=== PATIENT | female | born 1955 | race Two or more races ===

== ENCOUNTER 2018-10-06 12:23 | Inpatient (IN) | payer BC ==
[~2018-10-06] VITALS: Ht 165.1 cm; Wt 54.0 kg
--- NOTE | 2018-10-06 12:36 | NUR ---
[id number] FRM HOME. OD TO XANAX. +SI. ADMITS TO ETOH LAST NIGHT. 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 PT HAS SOME SLURRED SPEECH AND DIFFICULTY SPEAKING, BUT ABLE TO FOLLOW COMMANDS AND ANSWER QUESTIONS APPROPRIATELY. SKIN IS WARM, DRY, INTACT, AND NO ACUTE DISTRESS NOTED. URINE AND BLOOD SENT TO STAT LAB. SEEN BY TERESE BRUNER. IVF INFUSING. PT MADE WARM AND COMFORTABLE. WILL CONT TO MONITOR.
[2018-10-06 12:56] LABS: APPEARANCE,URINE Clear (CLEAR); BILIRUBIN,URINE Negative (NEGATIVE); BLOOD, URINE Trace-lysed Ery/uL (NEGATIVE); COLOR,URINE Yellow (YELLOW); KETONES,URINE Negative (NEGATIVE); LEUKOCYTE ESTERASE ,URINE Negative (NEGATIVE); NITRITE, URINE Negative (NEGATIVE); PROTEIN,URINE Negative (NEGATIVE); UGLUCOSE Negative (NEGATIVE); UROBILINOGEN,URINE 0.2 EU/dL (0.2)
[2018-10-06 12:57] LABS: BACTERIA,URINE Few /HPF (None Seen); SQUAMOUS EPITHELIAL CELL,UR Few /HPF (None Seen); WBC,URINE 0-2 /HPF (0-3)
[2018-10-06] MEDS ORDERED: IV NS 0.9% 1,000 ML BAG IV ONE (13:00)
[2018-10-06 13:03] LABS: BASOPHILS % (AUTO) 0.2 % (0.0-2.0); EOSINOPHILS % (AUTO) 0.4 % (0.0-6.0); HEMATOCRIT 42 % (33-45); HEMOGLOBIN 14.4 g/dL (11.5-14.8); LYMPHOCYTES # (AUTO) 1.1 /CMM (0.8-4.8); LYMPHOCYTES % (AUTO) 26.8 % (20.0-44.0); MEAN CORPUSCULAR HGB CONC 34 g/dl (31.0-36.0); MEAN CORPUSCULAR VOLUME 105 fL (82-100); MONOCYTES # (AUTO) 0.5 /CMM (0.1-1.30); MONOCYTES % (AUTO) 13.3 % (2.0-12.0); NEUTROPHILS # (AUTO) 2.3 /CMM (1.8-8.9); NEUTROPHILS % (AUTO) 59.3 % (43.0-81.0); PLATELET COUNT (AUTO) 194 /CMM (150-450); RED BLOOD CELL COUNT(AUTO) 3.99 MIL/uL (4.0-5.2)
[2018-10-06 13:09] LABS: CALCIUM, SERUM 8.5 mg/dL (8.5-10.1); CARBON DIOXIDE 29 mmol/L (21-32); CHLORIDE 104 mmol/L (98-107); CREATININE 0.6 mg/dL (0.6-1.3); GLUCOSE 93 mg/dL (74-106); POTASSIUM 3.7 mmol/L (3.5-5.1); SODIUM SERUM 141 mmol/L (136-145); UREA NITROGEN, BLOOD 12 mg/dL (7-18)
[2018-10-06] MEDS ORDERED: VITA1TAB56 PO (13:09)
[2018-10-06] MEDS ORDERED: BUPR-51 PO (13:09)
[2018-10-06] MEDS ORDERED: ESCI10TA PO (13:09)
[2018-10-06] MEDS ORDERED: CALC-7 PO (13:09)
[2018-10-06] MEDS ORDERED: CETI-102 PO (13:09)
[2018-10-06] MEDS ORDERED: ASCO500T9 PO (13:09)
[2018-10-06] MEDS ORDERED: ALPR0.5T8 PO (13:09)
[2018-10-06 13:16] LABS: ALANINE AMINOTRANSFERASE 31 U/L (12-78); ALBUMIN 4.3 g/dL (3.4-5.0); ALKALINE PHOSPHATASE 83 U/L (46-116); ASPARTATE AMINOTRANSFERASE 39 U/L (15-37); BILIRUBIN,DIRECT 0.1 mg/dL (0.0-0.2); BILIRUBIN,TOTAL 0.4 mg/dL (0.2-1.0); TOTAL PROTEIN, SERUM 7.6 g/dL (6.4-8.2)
[2018-10-06 13:17] LABS: ACETAMINOPHEN 0 ug/ml (10-30); ALCOHOL, BLOOD < 3 mg/dL (0-0); SALICYLATE 0.8 mg/dL (2.8-20.0)
--- NOTE | 2018-10-06 14:12 | NUR ---
XRAY AT BEDSIDE
--- NOTE | 2018-10-06 14:32 | NUR ---
ASSISTED PT TO BEDPAN
--- NOTE | 2018-10-06 15:17 | NUR ---
PT TAKEN TO CT VIA JOSELINE
--- NOTE | 2018-10-06 16:05 | NUR ---
110-MIREYA. PRIMARY NURSE AWARE.
--- NOTE | 2018-10-06 16:20 | NUR ---
MIREYA HEAD OF RESEARCH & INSIGHTS NOTE RECEIVED BEDSIDE ER REPORT FROM SUDHA HILL, ADMITTED FOR DIAGNOSIS OF OVERDOSE. ADMITTING DOCTOR DR. CADET. PT. STATES SHE WISHES TO BE DNR/DNI. HX OF DEPRESSION, ALCOHOL USE AND SUICIDE ATTEMPT X1. SINUS TACHY ON MONITOR WITH HR 110. ABLE TO AMBULATE TO BATHROOM WITH ASSIST. PT IS A/OX4, CAN SPEAK AND ANSWER QUESTIONS SLOWLY. DENIES ACTIVE PLAN FOR SUICIDE AT THIS TIME. SITTER AT BEDSIDE AT ALL TIMES. NO SHARP OBJECTS OR UNSAFE ITEMS IN ROOM. SAFETY/SUICIDE PRECAUTIONS IN PLACE. BED IN LOW POSITION, SIDE RAILS X2, LOCKED, ORIENTED TO ROOM AND CALL SYSTEM. TEMP 97.6, BP 144/87, SPO2 99% 2L VIA NC. L AC IV 20G CLEAN, DRY INTACT, INFUSING D5 1/2 NS @100ML/HR. PT. SKIN INTACT WITH EXCEPTION OF BIOPSY SPOT ON NOSE. ALL BELONGINGS ACCOUNTED FOR AND WITHIN REACH. ORDERS FOR NEURO ASSESSMENT Q4 HRS. WILL CONTINUE TO MONITOR AND ENDORSE TO NOC SHIFT.
--- NOTE | 2018-10-06 16:22 | NUR ---
REPORT GIVEN TO SUDHA PICKETT FOR MIREYA-110
[2018-10-06] MEDS ORDERED: MAG HYDROX/AL HYDROX/SIMETH 30 ML UDC PO PRN (16:30)
[2018-10-06] MEDS ORDERED: HYDROCODONE/APAP 5/325MG 1 EACH TABLET PO PRN (16:30)
[2018-10-06] MEDS ORDERED: ZOLPIDEM TARTRATE 5 MG TABLET PO PRN (16:30)
[2018-10-06] MEDS ORDERED: ONDANSETRON HCL/PF 4 MG/2 ML VIAL IVP PRN (16:30)
[2018-10-06] MEDS ORDERED: MAGNESIUM HYDROXIDE 30 ML UDC PO PRN (16:30)
[2018-10-06] MEDS ORDERED: Z GUARD REMEDY 2 OZ OINT TP PRN (16:30)
--- NOTE | 2018-10-06 16:31 | NUR ---
ASSISTED PT TO BEDPAN
--- NOTE | 2018-10-06 17:08 | NUR ---
[facility]
[2018-10-06] MEDS: IV D5/0.45 NACL 1,000 ML IV PRN (17:35)
[2018-10-06] MEDS: LORAZEPAM INJ 2 MG/ML VIAL IV PRN (18:38)
--- NOTE | 2018-10-06 19:45 | NUR ---
TD RN NOTE: RECEIVED PT ON BED ALERT AND ORIENTED X3, VERBALLY RESPONSIVE. SITTER AT BEDSIDE. NO ACUTE DISTRESS NOTED. DENIES PAIN AND DISCOMFORT AT THIS TIME. ON ROOM AIR, NO SOB NOTED. SINUS TACHY ON TELE MONITOR HR 102BPM. SATURATING WELL. NO SUICIDAL IDEATION NOTED. IV ON LEFT ANTECUBITAL #20 INTACT AND PATENT, IVF INFUSING WELL. KEPT CLEAN, DRY AND COMFORTABLE. SAFETY AND FALL PRECAUTIONS OBSERVED AND MAINTAINED. WILL CONTINUE TO MONITOR PT.
[2018-10-06 20:00] VITALS: BP 149/82
[2018-10-06] MEDS: ACETAMINOPHEN 325 MG TABLET PO PRN (20:28)
[2018-10-07] VITALS: BP 153/76
[2018-10-07] MEDS: LORAZEPAM INJ 2 MG/ML VIAL IV PRN ×3 (01:02→15:31)
[2018-10-07 04:00] VITALS: BP 138/85
[2018-10-07] MEDS: IV D5/0.45 NACL 1,000 ML IV PRN (04:39)
[2018-10-07] MEDS: ACETAMINOPHEN 325 MG TABLET PO PRN (06:15)
--- NOTE | 2018-10-07 06:34 | NUR ---
TD RN NOTE: NO CHANGES NOTED THROUGHOUT THE SHIFT. NO ACUTE DISTRESS NOTED. NO SUICIDAL IDEATION NOTED. SITTER AT BEDSIDE. ON ROOM AIR, NO SOB NOTED. PT COMPLAINED OF HEADACHE, TYLENOL PRN GIVEN. ON TELE MONITOR SINUS TACHY HR 107BPM. IV ON LEFT ANTECUBITAL #20 INTACT AND PATENT, IVF INFUSING WELL. KEPT CLEAN, DRY AND COMFORTABLE. SAFETY AND FALL PRECAUTIONS OBSERVED AND MAINTAINED. WILL ENDORSE TO DAY SHIFT RN FOR CONTINUITY OF CARE.
[2018-10-07 08:00] VITALS: BP 145/84
[2018-10-07 08:09] LABS: BASOPHILS % (AUTO) 0.1 % (0.0-2.0); EOSINOPHILS % (AUTO) 0.2 % (0.0-6.0); HEMATOCRIT 41 % (33-45); HEMOGLOBIN 14.3 g/dL (11.5-14.8); LYMPHOCYTES # (AUTO) 0.5 /CMM (0.8-4.8); LYMPHOCYTES % (AUTO) 11.7 % (20.0-44.0); MEAN CORPUSCULAR HGB CONC 35 g/dl (31.0-36.0); MEAN CORPUSCULAR VOLUME 105 fL (82-100); MONOCYTES # (AUTO) 0.4 /CMM (0.1-1.30); MONOCYTES % (AUTO) 10.2 % (2.0-12.0); NEUTROPHILS # (AUTO) 3.3 /CMM (1.8-8.9); NEUTROPHILS % (AUTO) 77.8 % (43.0-81.0); PLATELET COUNT (AUTO) 178 /CMM (150-450); RED BLOOD CELL COUNT(AUTO) 3.92 MIL/uL (4.0-5.2); WHITE BLOOD COUNT (AUTO) 4.2 K/uL (4.3-11.0)
[2018-10-07 08:34] LABS: CALCIUM, SERUM 8.5 mg/dL (8.5-10.1); CREATININE 0.6 mg/dL (0.6-1.3); MAGNESIUM 2.4 mg/dL (1.8-2.4); POTASSIUM 3.5 mmol/L (3.5-5.1)
[2018-10-07 08:44] LABS: THYROID STIMULATING HORMONE 0.973 uIU/mL (0.358-3.74)
--- NOTE | 2018-10-07 09:42 | NUR ---
INITIAL MIREYA RN NOTE RCVD PT AWAKE AND ALERT, SHOWING NO S/O DISTRESS/PAIN AT THIS TIME. ST ON MONITOR. AMBULATES TO BATHROOM WHEN NEEDED WITH STEADY GAIT. RIGHT AC C/D/I/PATENT, IVF INFUSING ORDERED. NO S/O INFILTRATION/PHLEBITIS OBSERVED UPON FLUSHING. 1:1 SITTER AT BEDSIDE FOR SAFETY. PT DENYING WANTING TO HARM SELF CURRENTLY, AND CAN'T BELIEVE THAT SHE GOT TO THE POINT OF OVERDOSING YESTERDAY. WILL CONTINUE TO MONITOR PT FOR SAFETY AND COMFORT. BED IN LOW AND LOCKED POSITION. CALL LIGHT WITHIN REACH, HEAD OF BED ELEVATED.
[2018-10-07 12:23] VITALS: BP 143/86
--- NOTE | 2018-10-07 13:31 | NUR ---
MIREYA RN NOTE PODODERMATOLOGIST THIS AM CONTACTED RN FOR WHAT WAS REPORTED A V-TACH EPISODE WHILE PT WAS IN BATHROOM. DR. CADET WAS CONTACTED AND INFORMED ABOUT IT, ECG WAS DONE AND IT SHOWED ST. PT WAS ASYMPTOMATIC THROUGHOUT EPISODE, NO PALPITATIONS OR SHORTNESS OF BREATH WAS REPORTED. PT APPEARED IN NO DISTRESS. PT TO BE DISCHARGED TO [facility] FROM [facility] WAS CONTACTED TO SEND CRISIS TEAM FOR POSSIBLE HOLD. WILL CONTINUE TO MONITOR.
[2018-10-07 16:00] VITALS: BP 141/83
--- NOTE | 2018-10-07 17:58 | NUR ---
MIREYA RN NOTE PER MICHAEL FROM [facility], DR. GUARDADO WON'T COME TO SEE PT BUT ART FROM CRISIS TEAM WILL ASSESS PT TO DETERMINE NEED FOR [facility] ADMISSION OR ANY OTHER RECOMMENDATIONS. ART AT PT'S BEDSIDE AT THIS TIME.
--- NOTE | 2018-10-07 19:54 | NUR ---
RANCH HAND SUPERVISOR NOTE: PT DISCHARGED TO [facility] RM 218-1 IN STABLE CONDITION. REPORT GIVEN TO SUDHA ASHLEY. PT IS ALERT AND ORIENTED X3. NO APPARENT DISTRESS NOTED. NO COMPLAINTS OF PAIN OR DISCOMFORT AT THIS TIME. NO SOB. IV ION RIGHT FOREARM #18 WAS REMOVED. EXIT CARE DONE. DISCHARGE INSTRUCTIONS AND DISCHARGE PAPERS GIVEN.
== END 2018-10-07 19:58 | DRG 918 ==
LOC: ER 12:25 → TELE-TD 16:22
PROVIDERS: ADMIT Student in an Organized Health Care Education/Training Program; ATTEND Student in an Organized Health Care Education/Training Program
DX: T42.4X2A Poisoning by benzodiazepines, intentional self-harm, initial encounter (principal); Y92.009 Unspecified place in unspecified non-institutional (private) residence as the place of occurrence of the external cause; F32.9 Major depressive disorder, single episode, unspecified; F41.9 Anxiety disorder, unspecified; R74.0 Nonspecific elevation of levels of transaminase and lactic acid dehydrogenase [LDH]; F10.10 Alcohol abuse, uncomplicated; D70.9 Neutropenia, unspecified; R00.0 Tachycardia, unspecified
CPT/HCPCS: 36415; 70450-TC; 71045-TC; 80048-TC; 80061-TC; 80076-TC; 80305; 81000-TC; 83735-TC; 84100-TC; 84443-TC; 85025-TC; 87081-TC; G0378; G0480; J2060; J3490; J7030

== ENCOUNTER 2018-10-07 20:18 | Inpatient (IN) | payer BC, OTHER ==
[~2018-10-07] VITALS: Ht 165.1 cm; Wt 52.6 kg
--- NOTE | 2018-10-07 20:15 | NUR ---
GPS HOG TRADER NOTE: ADMITTED A 62 YEAR OLD FEMALE FROM TELE TD UNIT ACCOMPANIED BY HER NURSE VIA WHEELCHAIR. PATIENT ADMITTED ON 5150 HOLD FOR DTS. PATIENT OVERDOSED ON 50 TABS OF XANAX, RECEIVED PATIENT AWAKE, ALERT, ORIENTED X3-4, DEPRESSED LOOKING, ANXIOUS, INTERACTS WHEN ENGAGED, APPROPRIATE, THOUGHT PROCESS INTACT. PATIENT SHOWS NO S/S OF ANY PAIN, DENIES ATTEMPT TO HURT HERSELF, NO SI NOTED, NO VERBALIZATION OF SI. CALM, COOPERATIVE, LOW ENERGY, FEELING SAD. NO ACUTE DISTRESS NOTED. RESPIRATION EVEN, BREATHING PATTERN NON-LABORED, RISE AND FALL OF CHEST NOTED. SKIN WARM DRY AND INTACT. BELONGINGS INVENTORIED AND CHECKED FOR CONTRABAND. PATIENT IS UNDER THE PSYCHIATRIC CARE OF DR. GUARDADO AND UNDER THE MEDICAL CARE OF DR. LESLY MEDRANO. PATIENT LIVES ALONE, NO FAMILY TO NOTIFY OF HER ADMISSION TO THE UNIT. PATIENT HAS NO DRUG ALLERGY AND WISHES FULL CODE. DOES NOT TAKE FLU OR PNEUMONIA VACCINE. BED LOCKED AND PLACED ON LOWEST POSITION FOR SAFETY. PATIENT STATED THAT SH FELL AT HOME 2 WEEKS AGO, PATIENT STEADY ON BOTH FEET. WILL CONTINUE TO MONITOR Q 15 MINS. FOR SAFETY AND BEHAVIOR.
[~2018-10-07 20:18] MED LIST: ALPR0.5T8 PO; ASCO500T9 PO; BUPR-51 PO; CALC-7 PO; CETI-102 PO; ESCI10TA PO; VITA1TAB56 PO
[2018-10-07] MEDS ORDERED: MAG HYDROX/AL HYDROX/SIMETH 30 ML UDC PO PRN (21:00)
[2018-10-07] MEDS ORDERED: MAGNESIUM HYDROXIDE 30 ML UDC PO PRN (21:00)
[2018-10-07] MEDS: LORAZEPAM 0.5 MG TABLET PO PRN (22:14)
[2018-10-08] MEDS: LORAZEPAM 0.5 MG TABLET PO PRN ×3 (04:30→17:12)
[2018-10-08 07:16] LABS: BILIRUBIN,TOTAL 0.6 mg/dL (0.2-1.0); CALCIUM, SERUM 8.8 mg/dL (8.5-10.1); CREATININE 0.7 mg/dL (0.6-1.3); POTASSIUM 3.8 mmol/L (3.5-5.1); TOTAL PROTEIN, SERUM 7.4 g/dL (6.4-8.2)
[2018-10-08 07:18] LABS: CHOLESTEROL 282 mg/dL (<200); HDL CHOLESTEROL 120 mg/dL (40-60); LDL 144 mg/dL (0-99); TRIGLYCERIDES 52 mg/dL (30-150)
[2018-10-08 08:00] VITALS: BP 138/89
--- NOTE | 2018-10-08 08:30 | NUR ---
given tyl. 650 mg po for headache.
[2018-10-08] MEDS: ACETAMINOPHEN 325 MG TABLET PO PRN ×2 (08:31→17:01)
[2018-10-08] MEDS: CALCIUM CARB 250MG /VITAMIN D 1 UDTAB PO SCH ×2 (08:55→17:54)
[2018-10-08] MEDS: ASCORBIC ACID 500 MG TABLET PO SCH (08:55)
--- NOTE | 2018-10-08 11:02 | NUR ---
given ativan for nerves.
--- NOTE | 2018-10-08 11:30 | NUR ---
mrsa smear done.
--- NOTE | 2018-10-08 12:30 | NUR ---
dr. aguayo in,orders written.
[2018-10-08] MEDS: BUPROPION XL 150 MG TAB.ER.24 PO SCH (13:26)
[2018-10-08] MEDS: ESCITALOPRAM OXALATE (10 MG) 10 MG TABLET PO SCH (13:26)
[2018-10-08] MEDS: ARIPIPRAZOLE 2 MG TABLET PO SCH (13:26)
[2018-10-08 16:00] VITALS: BP 160/90
--- NOTE | 2018-10-08 17:08 | NUR ---
given maalox for nausea,tylenol for headache and requesting ativan at this time.
[2018-10-08 20:58] VITALS: BP 146/89
--- NOTE | 2018-10-08 23:09 | NUR ---
Received pt. in her bed. Pt. was ambulation the cortes little to no interaction with peers. Pt. speaks in a soft voice blunt affect, linear thought processes and depressed mood. Pt. denies SI/HI and hearing voices. AAO to self and date. Pt. appears tearful at times. Fair impulse control, insight, and judgement. Pt admitted to feeling anxious and requested an Ativan .05 mg. at 2215. Will continue to monitor for safety and comfort.
[2018-10-09] MEDS: LORAZEPAM 0.5 MG TABLET PO PRN ×3 (00:37→11:44)
--- NOTE | 2018-10-09 05:16 | NUR ---
At 0400 pt. requested Ativan for anxiety. 0.05mg. Ativan given PO. Pt. reported the medicine does not give her much relief of her anxiety. Will endorse to day shift. Pt. also stated she experiences dizzy spells when getting out of bed. Instructed pt. to sit on side of bed a few minutes before standing to give her blood pressure a chance to stabilize. Assisted pt. to BR to urinate. Will continue to monitor for safety and comfort.
[2018-10-09 08:00] VITALS: BP 145/78
[2018-10-09] MEDS: ARIPIPRAZOLE 2 MG TABLET PO SCH ×2 (08:56→09:00)
[2018-10-09] MEDS: BUPROPION XL 150 MG TAB.ER.24 PO SCH (08:56)
[2018-10-09] MEDS: CALCIUM CARB 250MG /VITAMIN D 1 UDTAB PO SCH ×2 (08:56→17:24)
[2018-10-09] MEDS: ESCITALOPRAM OXALATE (10 MG) 10 MG TABLET PO SCH (08:56)
[2018-10-09] MEDS: ASCORBIC ACID 500 MG TABLET PO SCH (08:56)
[2018-10-09] MEDS: ACETAMINOPHEN 325 MG TABLET PO PRN ×2 (11:41→19:40)
--- NOTE | 2018-10-09 11:45 | NUR ---
RN-CO: PATIENT REQUESTED FOR ATIVAN DUE TO ANXIETY. TYLENOL WAS ALSO GIVEN FOR HEADACHE.
[2018-10-09 16:00] VITALS: BP 138/91
[2018-10-09] MEDS: clonazePAM 0.5 MG TABLET PO PRN (19:29)
[2018-10-09 19:48] VITALS: BP 146/99
[2018-10-09] MEDS: TEMAZEPAM 7.5 MG CAPSULE PO PRN (21:34)
[2018-10-10] MEDS: ACETAMINOPHEN 325 MG TABLET PO PRN ×2 (01:41→08:48)
[2018-10-10] MEDS: clonazePAM 0.5 MG TABLET PO PRN ×3 (01:59→17:44)
[2018-10-10 08:00] VITALS: BP 139/94
[2018-10-10] MEDS: ASCORBIC ACID 500 MG TABLET PO SCH (08:48)
[2018-10-10] MEDS: ESCITALOPRAM OXALATE (10 MG) 10 MG TABLET PO SCH (08:48)
[2018-10-10] MEDS: BUPROPION XL 150 MG TAB.ER.24 PO SCH (08:48)
[2018-10-10] MEDS: CALCIUM CARB 250MG /VITAMIN D 1 UDTAB PO SCH ×2 (08:48→17:44)
--- NOTE | 2018-10-10 08:49 | NUR ---
RN NOTE :PATIENT MEDICATED WITH KLONOPIN 0.5MG FOR ANXIETY AND ACETAMINOPHEN 650MG FOR GENERALIZE PAIN 5/10 WILL CONTINUE TO MONITOR .
--- NOTE | 2018-10-10 09:29 | NUR ---
UR NOTE: CHRISTIANO conducted verbal clinical review via voicemail with Marina showcase trimmer at [facility] [phone] ex:[phone].
--- NOTE | 2018-10-10 14:12 | NUR ---
SW received a call from Pts daughter Linsey [phone] who was requesting discharge and treatment information for pt. SW discussed pts treatment plan and informed her there was not discharge date yet. SW stated she would inform her of any updates. daughter agreed.
--- NOTE | 2018-10-10 14:45 | NUR ---
INITIAL DISCHARGE PLAN: Patient wishes to be discharged home to [id number] [place] [id number] . Pts daughter Linsey [phone] stated she would transport pt home once discharged. SW will help form a safe and proper discharge in collaboration with .
--- NOTE | 2018-10-10 16:01 | NUR ---
CHRISTIANO spoke with Pts daughter Linsey [phone] regarding pts discharge tomorrow 10/11/18. daughter stated she would be picking pt up between 11:30-12:00pm to transport her home.
[2018-10-10 17:22] VITALS: BP 151/86
--- NOTE | 2018-10-10 17:45 | NUR ---
RN NOTE: PATIENT MEDICATED WITH KLONOPIN 0.5MG FOR ANXIETY
[2018-10-10 20:30] VITALS: BP 103/67
[2018-10-10] MEDS: TEMAZEPAM 7.5 MG CAPSULE PO PRN (21:11)
[2018-10-11] MEDS: clonazePAM 0.5 MG TABLET PO PRN ×2 (02:06→09:55)
[2018-10-11] MEDS: ACETAMINOPHEN 325 MG TABLET PO PRN ×2 (02:06→09:55)
[2018-10-11 06:59] LABS: BASOPHILS % (AUTO) 0.4 % (0.0-2.0); HEMATOCRIT 39 % (33-45); HEMOGLOBIN 13.6 g/dL (11.5-14.8); LYMPHOCYTES # (AUTO) 0.8 /CMM (0.8-4.8); LYMPHOCYTES % (AUTO) 31.5 % (20.0-44.0); MEAN CORPUSCULAR HGB CONC 35 g/dl (31.0-36.0); MEAN CORPUSCULAR VOLUME 104 fL (82-100); MONOCYTES # (AUTO) 0.6 /CMM (0.1-1.30); MONOCYTES % (AUTO) 23.9 % (2.0-12.0); NEUTROPHILS # (AUTO) 1.1 /CMM (1.8-8.9); NEUTROPHILS % (AUTO) 43.2 % (43.0-81.0); PLATELET COUNT (AUTO) 195 /CMM (150-450); RED BLOOD CELL COUNT(AUTO) 3.78 MIL/uL (4.0-5.2); WHITE BLOOD COUNT (AUTO) 2.6 K/uL (4.3-11.0)
[2018-10-11 07:28] LABS: ALBUMIN 3.6 g/dL (3.4-5.0); BILIRUBIN,TOTAL 0.4 mg/dL (0.2-1.0); CALCIUM, SERUM 8.7 mg/dL (8.5-10.1); CREATININE 0.6 mg/dL (0.6-1.3); POTASSIUM 3.1 mmol/L (3.5-5.1); TOTAL PROTEIN, SERUM 6.8 g/dL (6.4-8.2)
[2018-10-11 07:58] LABS: BAND % (MANUAL) 3 % (0.0-5.0); LYMPHOCYTES % (MANUAL) 31 % (16-48); MONOCYTES % (MANUAL) 22 % (0-11.0); NEUTROPHILS % (MANUAL) 44 (42-76)
[2018-10-11 08:00] VITALS: BP 122/55
--- NOTE | 2018-10-11 08:26 | NUR ---
UR NOTE: CHRISTIANO contacted Mraina hospice case manager at [facility] [phone] ex:[phone] requesting an update for authorization via voicemail. CHRISTIANO also informed her pt is being discharged home on this present day.
[2018-10-11] MEDS: ASCORBIC ACID 500 MG TABLET PO SCH (08:46)
[2018-10-11] MEDS: BUPROPION XL 150 MG TAB.ER.24 PO SCH (08:46)
[2018-10-11] MEDS: ESCITALOPRAM OXALATE (10 MG) 10 MG TABLET PO SCH (08:46)
[2018-10-11] MEDS: CALCIUM CARB 250MG /VITAMIN D 1 UDTAB PO SCH (08:46)
[2018-10-11] MEDS: POTASSIUM CHLORIDE 20 MEQ TAB.PRT.SR PO SCH ×2 (09:55→10:30)
--- NOTE | 2018-10-11 10:08 | NUR ---
SW contacted psychiatrist Dr. Jose Cruz Aden Address: [id number] [facility] [id number], [place] [address] office and left a voicemail with his respiratory therapy assistant informing her pt is being discharged from the hospital on this present day and needs a follow up appointment.
--- NOTE | 2018-10-11 10:10 | NUR ---
DISCHARGE NOTE: Pt will be discharged between 11:30am-12:00pm home to [id number] [address] [facility] [id number] . Pts daughter Linsey [phone] will be transporting pt home. Pts mood is anxious with congruent affect. Pt denied suicidal/homicidal ideation and denied visual/auditory hallucinations. CHRISTIANO contacted Psychiatrist: Dr. Jose Cruz Aden Address: [address] [facility] [address], [place] [address] and left a voicemail informing his physician assistant surgery pt needs a follow up appointment. SW also faxed clinical information to his office at [phone]. Pt has an appointment with her therapist Merari Stockton at [facility] Address: [phone] [facility] [address] [facility], [place] [address] on this present day at 1:00pm and also a scheduled appointment on 10/13/18 at 1:00pm where she will be addressing her misuse of prescription drugs. Pt was also provided a referral to [facility] Address: [id number], [place] [address] . The multidisciplinary exitcare form was done, printed, signed, and given to the patient.
--- NOTE | 2018-10-11 12:08 | NUR ---
GPS/RN SPOKE WITH KAUSHIK FROM [facility] ON [facility], . PATIENT'S PREFERRED PHARMACY AND NOTIFIED REGARDING NEW PSYCH MEDICATION PRESCRIPTION WELLBUTRIN XL 150MG PO DAILY #30 AND LEXAPRO 20MG PO DAILY # [address] DEBBY ORTIZ, 'S SHAYY NUMBER PROVIDED AND CONTACT INFO PROVIDED. PER KAUSHIK, WILL FILL THE PRESCRIPTION MEDICATION ORDERED. PATIENT AND DAUGHTER NOTIFIED.
--- NOTE | 2018-10-11 12:34 | NUR ---
GPS/EKG TECHNICIAN PATIENT DISCHARGE HOME IN STABLE CONDITION. A/O X 4. NO SIGNS OF ACUTE DISTRESS. NO COMPLAIN OF PAIN OR DISCOMFORT. DISCHARGE EDUCATION AND TEACHINGS PROVIDED TO PATIENT AND PATIENT'S DAUGHTER (CAREGIVER) VERBALIZED UNDERSTANDING. PRESCRIPTION PROVIDED FOR MEDICATION AND NOTIFIED TO FOLLOW UP WITH PSYCHIATRIST AND BUSINESS INTELLIGENCE ENGINEER WITHIN A WEEK. PSYCH MEDICATION PRESCRIPTION FOR WELLBUTRIN AND LEXAPRO SENT TO [facility] LOC[facility] ON [facility] VIA PHONE C/O KAUSHIK. ALL NEEDS ATTENDED TO. NAME BAND REMOVED. LEFT IN STABLE CONDITION ACCOMPANIED BY DAUGHTER.
--- NOTE | 2018-10-11 13:00 | NUR ---
UR NOTE: CHRISTIANO received a call from Marina shelter case manager at [facility] [phone] ex:[phone] stating pt was authorized for 10/10/18 and CHRISTIANO also conducted discharge summary.
--- NOTE | 2018-10-11 14:27 | NUR ---
SW received a call from Erin psychiatrist Dr. Jose Cruz Aden scheduling assistant Address: [address] [facility] [address], [place] [address] stating pt was scheduled for a follow up appointment on Wednesday10/14/18 at 2:00pm. Erin stated she would contact pt to inform her.
[2018-10-11] MEDS ORDERED: ATORVASTATIN 10 MG TABLET PO SCH (22:00)
--- NOTE | 2018-10-24 14:26 | NUR ---
SUBSTANCE ABUSE FOLLOW UP: unable to follow up due to contact number no longer being valid.
== END 2018-10-11 12:30 | disposition home or self-care (01) | DRG 885 ==
LOC: GPS 20:18
PROVIDERS: ADMIT Psychiatry & Neurology Psychiatry; ATTEND Family Medicine
DX: F33.2 Major depressive disorder, recurrent severe without psychotic features (principal); R45.851 Suicidal ideations; D70.8 Other neutropenia; E78.5 Hyperlipidemia, unspecified; E87.6 Hypokalemia; F10.10 Alcohol abuse, uncomplicated; R74.0 Nonspecific elevation of levels of transaminase and lactic acid dehydrogenase [LDH]; X83.8XXS Intentional self-harm by other specified means, sequela
CPT/HCPCS: 36415; 80053-TC; 80061-TC; 85025-TC; 87081-TC